=== PATIENT | female | born 1960 | race Hispanic/Latino ===

== ENCOUNTER 2018-11-29 06:12 | Day surgery (SDC) | payer BC ==
[2018-11-27 17:01] LABS: Urine Appearance CLEAR; Urine Bilirubin NEGATIVE (NEG); Urine Blood NEGATIVE (NEG); Urine Color YELLOW; Urine Glucose NEGATIVE (NEG); Urine Protein NEGATIVE (NEG); Urine Specific Gravity 1.025 (1.005-1.030); Urine Urobilinogen 0.2 mg/dL (0.2-1.0)
[2018-11-27 17:07] LABS: Urine Microscopic Reflex NO UMIC
[2018-11-27 17:14] LABS: Absolute Monocytes 0.6 K/uL (0.1-1.3); Absolute Neutrophil 5.6 K/uL (1.8-8.0); Basophils % 0.6 % (0-1.3); Eosinophils % 2.2 % (0-4.4); Hematocrit 42.8 % (36.0-45.0); MPV 7.9 fL (7.6-11.3); Monocytes % 6.1 % (3.3-12.3); RBC Red Blood Cell Count 4.93 M/uL (3.86-4.86)
--- OUTSIDE RECORDS SUMMARY | 2018-11-29 06:16 | XMS REPORT | Clinical Summary ---
:1960 Author Organization [facility] Address [address] [place] [id number] Care Team Providers Name Role Phone Phoenix Lopez Primary Care Provider Allergies Active Allergy Reactions Severity Noted Date Comments Codeine Other (See Comments) High 08/06/2014 Headache Prochlorperazine Other (See Comments) High 08/06/2014 Oxycodone-Acetaminophen Itching, Nausea And High 09/26/2014 headache Vomiting Sulfa (Sulfonamide Antibiotics) Rash High 08/06/2014 Medications Medication Sig Dispensed Refills Start Date End Date Status ibuprofen Take by mouth. 0 Active (ADVIL,MOTRIN) 200 MG tabletIndications: Abnormal liver enzymes naproxen Take 220 mg by 0 Active (ALEVE,ANAPROX,MIDOL) mouth 2 (two) 220 MG times daily with tabletIndications: breakfast and Abnormal liver enzymes dinner. acetaminophen (TYLENOL) Take 650 mg by 0 Active 325 MG mouth every 6 tabletIndications: (six) hours as Abnormal liver enzymes needed for Pain. diphenhydrAMINE Take 25 mg by 0 Active (BENADRYL) 25 mg mouth every night tabletIndications: as needed for Abnormal liver enzymes Sleep. albuterol HFA (VENTOLIN Inhale 1 puff by 0 Active HFA) 90 mcg/actuation mouth via inhaler inhalerIndications: every 6 (six) Abnormal liver enzymes hours as needed for Wheezing. msm-aloe Apply topically. 0 Active evsu--jvc oil GelIndications: Abnormal liver enzymes estradiol (ESTRACE) 1 Take 1 mg by 0 Active MG tabletIndications: mouth daily. Abnormal liver enzymes famotidine (PEPCID) 20 Take 20 mg by 0 Active MG tablet mouth daily as needed for Heartburn. Active Problems Problem Noted Date Abnormal liver enzymes 12/09/2016 Last Assessment & Plan: She has long standing elevated transaminase consistent with hepatocellular injury. The most likely cause is fatty liver. Sarcoidosis is another possibility. Comprehensive tests done in September 2016 was unremarkable for other causes. We recommend liver biopsy for further evaluation. This will be done after she has completed 30-day of heart monitoring. Fatty liver 12/09/2016 Last Assessment & Plan: She has fatty liver noted on ultrasound. Her risk factors include obesity, hyperlipidemia. She has no evidence of cirrhosis on biochemical tests and imaging in 2014. We will repeat ultrasound with elastography today to evaluate liver fibrosis. We recommend liver biopsy to determine whether she has NOVAK and advanced fibrosis. We recommend 5-10% weight loss with low carbohydrate diet and exercise. Sarcoidosis 12/09/2016 Last Assessment & Plan: She was diagnosed with sarcoidosis based on skin biopsy and elevated TAWANDA. She is not a usual ethnicity to have sarcoidosis. Sarcoidosis can involve liver and is a potential cause of abnormal liver enzymes. We will order liver biopsy for further evaluation. Obesity (BMI 30-39.9) 12/09/2016 Last Assessment & Plan: She has obesity and hyperlipidemia that increase risk of fatty liver, cardiovascular disease and malignancy. We recommend weight loss with low carbohydrate diet and exercise. Immunity status testing 12/09/2016 Last Assessment & Plan: All patients with chronic liver disease, regardless of etiology, should be immunized to prevent hepatitis A and hepatitis B if they are not already immune. She did not have immunity to hepatitis B from 09/18/16 tests. We will test for immunity to hepatitis A - vaccine recommendations will follow. Family History Medical History Relation Name Comments Hypertension Sister Sjogren's syndrome Sister Relation Name Status Comments Sister Alive Social History Tobacco Use Types Packs/Day Years Used Date Never Smoker Alcohol Use Drinks/Week oz/Week Comments No Social drinking, states only social drinking prior to that Sex Assigned at Date Recorded Not on file Job Start Date Occupation Industry Not on file Not on file Not on file Travel History Travel Start Travel End No recent travel history available. Last Filed Vital Signs Not on file Plan of Treatment Health Maintenance Due Date Last Done Comments INFLUENZA VACCINE 04/17/2018 Results Not on fileafter 11/28/2017 Insurance Payer Benefit Plan / Group Subscriber ID Type Phone Address [facility] CHOICE xxxxxxxxxxxx HMO/POS [phone] CHOICE EXCHANGE URIAH [phone] Advance Directives For more information, please contact:[address] [phone] Code Status Date Activated Date Inactivated Comments Full Code 01/07/2017 2:06 PM 01/07/2017 9:17 PM This code status was determined by: Patient
--- OUTSIDE RECORDS SUMMARY | 2018-11-29 06:16 | XMS REPORT | Clinical Summary ---
:1960 Author Organization [facility] Address [address] [place] [address] Care Team Providers Name Role Phone Essie Holman MD Primary Care Provider Allergies Active Allergy Reactions Severity Noted Date Comments Codeine High Vomiting & Headaches Vomiting & Headaches Oxycodone-Acetaminophen Itching, Other (See High 09/26/2014 headache Comments) itching Prochlorperazine High loss of vision loss of vision Prochlorperazine Edisylate Other (See 06/24/2011 Comments) Sulfa (Sulfonamide Other (See High 06/24/2011 headaches Antibiotics) Comments) Medications Medication Sig Dispensed Refills Start Date End Date Status cholecalciferol, vitamin Take by mouth 0 Active D3, (VITAMIN D3 ORAL) daily. omega-3s/dha/epa/fish Take by mouth 3 0 Active oil (OMEGA 3 ORAL) (three) times a day. acetaminophen (TYLENOL) Take 325 mg by 0 Active 325 MG tablet mouth every 6 (six) hours as needed for fever. Active Problems Problem Noted Date Varicose veins of lower extremity 01/25/2018 Postmenopausal status 01/25/2018 Dizziness 01/25/2018 Overview: Previous was seen by ENT for dizziness, had hearing test and balance test done. Last Assessment & Plan: Per ENT. Notes reviewed. Sarcoidosis 12/09/2016 Overview: She was diagnosed with sarcoidosis based on skin biopsy and elevated TAWANDA. Has been having some periarthritis in the ankles and feet and just takes advil/ tylenol and she states it works ok. Does have cough and SOB and was ruled out by a previous pulm for MINOO> Last Assessment & Plan: Place referral for Pulmonary & Rheumatology Obesity (BMI 30-39.9) 12/09/2016 Overview: Last Assessment & Plan: She has obesity and hyperlipidemia that increase risk of fatty liver, cardiovascular disease and malignancy. We recommend weight loss with low carbohydrate diet and exercise. Fatty liver 12/09/2016 Overview: She has fatty liver noted on ultrasound. Her risk factors include obesity, hyperlipidemia. Liver biopsy done showed NOVAK. Last Assessment & Plan: We recommend 5-10% weight loss with low carbohydrate diet and exercise and recheck LFTS. Immunity status testing 12/09/2016 Overview: Last Assessment & Plan: All patients with chronic liver disease, regardless of etiology, should be immunized to prevent hepatitis A and hepatitis B if they are not already immune. She did not have immunity to hepatitis B from 09/18/16 tests. We will test for immunity to hepatitis A - vaccine recommendations will follow. Vitamin D deficiency 04/08/2015 Mixed hyperlipidemia 04/08/2015 Overview: Not on meds; trying to control with diet; BMI 31 Last Assessment & Plan: Recheck Lipids during physical. Lipid abnormalities are newly identified. Nutritional counseling was provided. Lipids will be reassessed in 6 months. Encounters Date Type Specialty Care Team Description 01/25/2018 Lab Lab Essie Holman Fatty liver MD Aubrey 01/25/2018 Office Visit Internal Medicine Essie Holman Sarcoidosis ( Primary Dx); MD Aubrey Chronic cough; Fatty liver; Mixed hyperlipidemia; Dizziness after 11/28/2017 Family History Medical History Relation Name Comments Cancer Brother Brother prostate Cataracts Mother Hypertension Sister Relation Name Status Comments Brother Brother Father Mother Alive Sister Alive Social History Tobacco Use Types Packs/Day Years Used Date Never Smoker Smokeless Tobacco: Never Used Tobacco Cessation: Counseling Given: No Alcohol Use Drinks/Week oz/Week Comments No Sex Assigned at Date Recorded Not on file Job Start Date Occupation Industry Not on file Not on file Not on file Travel History Travel Start Travel End No recent travel history available. Last Filed Vital Signs Vital Sign Reading Time Taken Blood Pressure 114/73 01/25/2018 9:16 AM CDT Pulse 64 01/25/2018 9:16 AM CDT Temperature 36.6 C (97.9 F) 01/25/2018 9:16 AM CDT Respiratory Rate 16 01/25/2018 9:16 AM CDT Oxygen Saturation 96% 01/25/2018 9:16 AM CDT Inhaled Oxygen Concentration - - Weight 78.5 kg (173 lb) 01/25/2018 9:16 AM CDT Height 157.5 cm (5' 2") 01/25/2018 9:16 AM CDT Body Mass Index 31.64 01/25/2018 9:16 AM CDT Plan of Treatment Health Maintenance Due Date Last Done Comments CERVICAL CANCER SCREENING 09/17/1983 BREAST CANCER SCREENING 2012 COLON CANCER SCREENING 2012 SHINGLES VACCINES (#1) 2012 INFLUENZA VACCINE 02/15/2019 Procedures Procedure Name Priority Date/Time Associated Comments Diagnosis CBC WITH PLATELET AND Routine 01/25/2018 10:16 Fatty liver Results for this DIFFERENTIAL AM CDT procedure are in the results section. COMPREHENSIVE Routine 01/25/2018 10:16 Fatty liver Results for this METABOLIC PANEL AM CDT procedure are in the results section. after 11/28/2017 Results CBC with platelet and differential (01/25/2018 10:16 AM CDT) WBC 7.7 3.4 - 10.8 x10E3/uL [facility] RBC 4.51 3.77 - 5.28 x10E6/uL [facility] HGB 13.3 11.1 - 15.9 g/dL [facility] HCT 40.1 34.0 - 46.6 % [facility] MCV 89 79 - 97 fL [facility] MCH 29.5 26.6 - 33.0 pg [facility] MCHC 33.2 31.5 - 35.7 g/dL [facility] RDW 13.3 12.3 - 15.4 % [facility] Platelet count 280 150 - 379 x10E3/uL [facility] Neutrophils 50 Not Estab. % [facility] Lymphocytes 40 Not Estab. % [facility] Monocytes 7 Not Estab. % [facility] Eosinophils 3 Not Estab. % [facility] Basophils 0 Not Estab. % [facility] Neutrophils, absolute 3.9 1.4 - 7.0 x10E3/uL [facility] Lymphocytes, absolute 3.1 0.7 - 3.1 x10E3/uL [facility] Monocytes, absolute 0.5 0.1 - 0.9 x10E3/uL [facility] Eosinophils, absolute 0.2 0.0 - 0.4 x10E3/uL [facility] Basophils, absolute 0.0 0.0 - 0.2 x10E3/uL [facility] Immature granulocytes 0 Not Estab. % [facility] Immature grans (abs) 0.0 0.0 - 0.1 x10E3/uL [facility] Specimen Blood Narrative Performed At Performed at: [id number] Continuous Churn Buttermaker: Edward Cummins MD, Phone:[phone] Performing Organization Address [facility] [place] Phone Number [facility] Comprehensive metabolic panel (01/25/2018 10:16 AM CDT) Glucose 91 65 - 99 mg/dL [facility] BUN, whole blood 11 6 - 24 mg/dL [facility] Creatinine 0.78 0.57 - 1.00 mg/dL [facility] EGFR Non-Afr. Palauan 86 >59 mL/min/1.73 [facility] EGFR 99 >59 mL/min/1.73 [facility] BUN/creatinine ratio 14 9 - 23 [facility] Sodium 141 134 - 144 mmol/L [facility] Potassium 5.0 3.5 - 5.2 mmol/L [facility] Chloride 105 96 - 106 mmol/L [facility] CO2 23 20 - 29 mmol/L [facility] Calcium 9.8 8.7 - 10.2 mg/dL [facility] Protein 6.9 6.0 - 8.5 g/dL [facility] Albumin, S 4.4 3.5 - 5.5 g/dL [facility] Globulin, total 2.5 1.5 - 4.5 g/dL [facility] Albumin/globulin ratio 1.8 1.2 - 2.2 [facility] Total bilirubin 0.6 0.0 - 1.2 mg/dL [facility] Alkaline phosphatase 113 39 - 117 IU/L [facility] AST 58 (H) 0 - 40 IU/L [facility] ALT 63 (H) 0 - 32 IU/L [facility] Specimen Blood Narrative Performed At [facility] [id number] Continuous Churn Buttermaker: Edward Cummins MD, Phone:[phone] Performing Organization Address [facility] Phone Number [facility] after 11/28/2017 Insurance Payer Benefit Plan / Group Subscriber ID Type Phone Address BCBS BCBS CHOICE PPO/FEDERAL EMPL PPO xxxxxxxxxxxx PPO Advance Directives Patient has advance care planning documents on file. For more information, please contact:[place] [address]
--- OUTSIDE RECORDS SUMMARY | 2018-11-29 06:17 | XMS REPORT ---
:1960 Author Organization [facility] Address [address] [place] [address] [address] [place] [address] Care Team Providers Name Role Phone HILL PEACE Unavailable Unavailable RAPHAEL HANLEY Unavailable Unavailable Problems This patient has no known problems. Allergies, Adverse Reactions, Alerts This patient has no known allergies or adverse reactions. Medications This patient has no known medications. Encounters Start End Encounter Admission Attending Care Care Encounter Date/Time Date/Time Type Type Clinicians Facility Department ID 2018-10-04 Inpatient C [facility] PT [id number] 12:46:00 HILL Results Test Description Test Time Test Comments Text Results Atomic Results Result Comments TISSUE EXAM 2017-01-10 15:34:00 Surgical Pathology Report Case: [id number] Authorizing Provider: Raphael Hanley MD Collected: 01/07/2017 1548 Ordering Location: [facility] Patient Lab Received: 01/07/2017 1548 Pathologist: Ly Tamez MD Specimen: Biopsy, Liver, ELEVATED LIVER ENZYMES LIVER, RIGHT LOBE, ULTRASOUND-GUIDED NEEDLE BIOPSIES- STEATOHEPATITIS- FIBROSIS STAGE 3 OF 4- CHRONIC PORTAL LYMPHOPLASMACYTIC INFLAMMATION WITH MILD INTERFACE HEPATITIS- MODERATE TO SEVERE LOBULAR INFLAMMATION WITH SCATTERED ACIDOPHILIC BODIES- SEE COMMENT The liver biopsy shows steatohepatitis. In addition, there is portal lymphoplasmacytic inflammation with mild interface hepatitis, and moderate to marked lobular inflammation. The portal and lobular inflammation can be present in steatohepatitis that progress to advanced fibrosis. However, this may also represent an added component of chronic hepatitis secondary to viral hepatitis or drug induced liver injury. Clinical correlation is suggested.The non-alcoholic steatohepatitis (CHRISS) activity scoring is performed according to guidelines from non-alcoholic steatohepatitis, clinical research network (Dayna, et al. Hepatology 2005. 41:1313-21), at the request of the clinicianThe CHRISS score is: Steatosis: Grade 2 + lobular inflammation, grade 3 + hepatocyte ballooning score 1=6/8. The fibrosis score is 3 of 4 (bridging fibrosis)[id number] X 4Elevated liver enzymes Right lobe liver biopsy Received in formalin labeled "liver biopsy", are two light hollis cores of soft tissue each measuring 1.5 cm in length. The specimen is entirely submitted in cassette A1. DB/ewSection shows two cores of liver parenchyma with greater than 10 portal tracts and is adequate for evaluation. There is moderate steatosis, predominantly macrovesicular type, azonal in distribution, and involving about 40 % of liver parenchyma. Focal ballooning degeneration is noted. There is moderate to severe lobular inflammation with few scattered acidophilic bodies. Rare focus of lobular neutrophils is noted. The portal tracts show preserved and unremarkable bile ducts. Mild cholangiolar proliferation is noted. There is chronic nonspecific portal inflammation with mild interface hepatitis. Iron stain shows 1+ staining of the hepatocytes. No hyaline globules are seen on PAS with diastase stain. The trichrome stain perisinusoidal fibrosis, as well as portal/periportal and focal bridging fibrosis with incomplete nodule formation. No significant portal fibrosis is noted. Special stains: trichrome, reticulin, iron and PAS [facility], [facility] of [facility], [address] [place] [address], [place] [address], CBC W/PLT COUNT & AUTO DIFFERENTIAL 2017-01-07 11:41:00 Test Item Value Reference Range Comments WHITE BLOOD CELL COUNT (BEAKER) (test kxrh=014) 6.3 K/ L 4.0-10.0 RED BLOOD CELL COUNT (BEAKER) (test qdtk=331) 4.62 M/ L 4.00-5.00 HEMOGLOBIN (BEAKER) (test geta=605) 14.4 GM/DL 12.0-15.0 HEMATOCRIT (BEAKER) (test srek=092) 40.8 % 36.0-45.0 MEAN CORPUSCULAR VOLUME (BEAKER) (test elfd=905) 88.2 fL 82.0-99.0 MEAN CORPUSCULAR HEMOGLOBIN (BEAKER) (test ztvr=753) 31.1 pg 27.0-33.0 MEAN CORPUSCULAR HEMOGLOBIN CONC (BEAKER) (test zkyh=290) 35.2 GM/DL 32.0- 36.0 RED CELL DISTRIBUTION WIDTH (BEAKER) (test jxpb=886) 12.5 % 10.3-14.2 PLATELET COUNT (BEAKER) (test cxvt=804) 239 K/CU MM 150-430 MEAN PLATELET VOLUME (BEAKER) (test wulm=389) 6.6 fL 6.5-10.5 NUCLEATED RED BLOOD CELLS (BEAKER) (test qnfq=501) 0 /100 WBC 0-0 NEUTROPHILS RELATIVE PERCENT (BEAKER) (test rxmp=565) 47 % LYMPHOCYTES RELATIVE PERCENT (BEAKER) (test cdxo=069) 44 % MONOCYTES RELATIVE PERCENT (BEAKER) (test jhry=331) 6 % EOSINOPHILS RELATIVE PERCENT (BEAKER) (test pimf=990) 3 % BASOPHILS RELATIVE PERCENT (BEAKER) (test ogyh=070) 0 % NEUTROPHILS ABSOLUTE COUNT (BEAKER) (test pwdk=159) 2.93 K/ L 1.80-8.00 LYMPHOCYTES ABSOLUTE COUNT (BEAKER) (test cweg=678) 2.73 K/ L 1.48-4.50 MONOCYTES ABSOLUTE COUNT (BEAKER) (test meyy=639) 0.37 K/ L 0.00-1.30 EOSINOPHILS ABSOLUTE COUNT (BEAKER) (test xnbm=449) 0.21 K/ L 0.00-0.50 BASOPHILS ABSOLUTE COUNT (BEAKER) (test vqpg=251) 0.02 K/ L 0.00-0.20 0.00(MANUAL DIFFERENTIAL)2017-01-07 11:41:00 Test Item Value Reference Range Comments TOTAL COUNTED (BEAKER) (test icsw=8214) WBC MORPHOLOGY (BEAKER) (test mdss=901) Normal PLT MORPHOLOGY (BEAKER) (test rwbx=412) Normal RBC MORPHOLOGY (BEAKER) (test fbsn=501) Normal COMPREHENSIVE METABOLIC [id number] 09:12:00 Test Item Value Reference Range Comments TOTAL PROTEIN (BEAKER) 7.1 gm/dL 6.0-8.3 (test yjut=362) ALBUMIN (BEAKER) (test 3.8 g/dL 3.5-5.0 klqr=6830) ALKALINE PHOSPHATASE 115 U/L 40-150 (BEAKER) (test cfya=860) BILIRUBIN TOTAL (BEAKER) 1.0 mg/dL 0.2-1.2 (test xgwy=214) SODIUM (BEAKER) (test 138 meq/L 136-145 lxdu=205) POTASSIUM (BEAKER) (test 4.1 meq/L 3.5-5.1 yzke=747) CHLORIDE (BEAKER) (test 107 meq/L 98-107 vfyr=745) CO2 (BEAKER) (test 25 meq/L 22-29 kexb=928) BLOOD UREA NITROGEN 9 mg/dL 7-21 (BEAKER) (test gqyi=476) CREATININE (BEAKER) (test 0.80 mg/dL 0.57-1.25 mrnq=596) GLUCOSE RANDOM (BEAKER) 99 mg/dL 70-105 (test jeuz=551) CALCIUM (BEAKER) (test 9.0 mg/dL 8.4-10.2 ejgp=107) AST (SGOT) (BEAKER) (test 104 U/L 5-34 omtw=174) ALT (SGPT) (BEAKER) (test 103 U/L 6-55 orqq=231) EGFR (BEAKER) (test 75 mL/min/1.73 sq m ESTIMATED GFR IS NOT gdfs=2467) ACCURATE CREATININE CLEARANCE IN PREDICTING GLOMERULAR FILTRATION RATE. ESTIMATED GFR IS NOT APPLICABLE FOR DIALYSIS PATIENTS. [id number] 08:59:00 Test Item Value Reference Range Comments PROTIME (BEAKER) (test gblp=819) 13.7 seconds 11.7-14.7 INR (BEAKER) (test hfnk=239) 1.1 <=5.9 PARTIAL THROMBOPLASTIN TIME (BEAKER) (test 26.7 seconds 22.5-36.0 drmc=042) RECOMMENDED COUMADIN/WARFARIN INR THERAPY RANGESSTANDARD DOSE: 2.0 - 3.0 Includes: PROPHYLAXIS forvenous thrombosis, systemic embolization; TREATMENT for venous thrombosis and/or pulmonary embolus.HIGH RISK: Target INR is 2.5-3.5 for patients with mechanical heart valves.HEPATITIS B CORE ANTIBODY, [id number] 15:09:00 Test Item Value Reference Range Comments HEPATITIS B CORE TOTAL ANTIBODY (BEAKER) (test Nonreactive Nonreactive jlan=796) HEPATITIS A ANTIBODY, [id number] 15:09:00 Test Item Value Reference Range Comments HEPATITIS A IGG ANTIBODY (BEAKER) (test Nonreactive Nonreactive dhie=1549) HEPATIC FUNCTION [id number] 14:29:00 Test Item Value Reference Range Comments TOTAL PROTEIN (BEAKER) (test qovr=718) 8.0 gm/dL 6.0-8.3 ALBUMIN (BEAKER) (test tkdd=5862) 4.2 g/dL 3.5-5.0 BILIRUBIN TOTAL (BEAKER) (test hzfy=895) 1.1 mg/dL 0.2-1.2 BILIRUBIN DIRECT (BEAKER) (test mbdc=508) 0.3 mg/dL 0.1-0.5 ALKALINE PHOSPHATASE (BEAKER) (test cuee=600) 128 U/L 40-150 AST (SGOT) (BEAKER) (test vvew=513) 89 U/L 5-34 ALT (SGPT) (BEAKER) (test clms=629) 96 U/L 6-55 BASIC METABOLIC [id number] 14:29:00 Test Item Value Reference Range Comments SODIUM (BEAKER) (test 138 meq/L 136-145 owwa=949) POTASSIUM (BEAKER) (test 4.0 meq/L 3.5-5.1 jhtw=711) CHLORIDE (BEAKER) (test 105 meq/L 98-107 htpe=836) CO2 (BEAKER) (test 24 meq/L 22-29 onog=585) BLOOD UREA NITROGEN 10 mg/dL 7-21 (BEAKER) (test imne=476) CREATININE (BEAKER) (test 0.80 mg/dL 0.57-1.25 xcvi=049) GLUCOSE RANDOM (BEAKER) 89 mg/dL 70-105 (test nbqp=170) CALCIUM (BEAKER) (test 9.4 mg/dL 8.4-10.2 dvsm=259) EGFR (BEAKER) (test 75 mL/min/1.73 sq m ESTIMATED GFR IS NOT bdyj=9688) ACCURATE CREATININE CLEARANCE IN PREDICTING GLOMERULAR FILTRATION RATE. ESTIMATED GFR IS NOT APPLICABLE FOR DIALYSIS PATIENTS. CBC W/PLT COUNT & AUTO [id number] 14:08:00 Test Item Value Reference Range Comments WHITE BLOOD CELL COUNT (BEAKER) (test rizi=721) 8.7 K/ L 4.0-10.0 RED BLOOD CELL COUNT (BEAKER) (test uuis=190) 4.94 M/ L 4.00-5.00 HEMOGLOBIN (BEAKER) (test wkov=264) 15.5 GM/DL 12.0-15.0 HEMATOCRIT (BEAKER) (test bbxm=493) 44.4 % 36.0-45.0 MEAN CORPUSCULAR VOLUME (BEAKER) (test trim=500) 89.9 fL 82.0-99.0 MEAN CORPUSCULAR HEMOGLOBIN (BEAKER) (test 31.3 pg 27.0-33.0 dsib=070) MEAN CORPUSCULAR HEMOGLOBIN CONC (BEAKER) (test 34.8 GM/DL 32.0-36.0 kube=119) RED CELL DISTRIBUTION WIDTH (BEAKER) (test 11.2 % 10.3-14.2 mqeu=701) PLATELET COUNT (BEAKER) (test nyua=498) 282 K/CU MM 150-430 MEAN PLATELET VOLUME (BEAKER) (test ifgc=479) 6.9 fL 6.5-10.5 NUCLEATED RED BLOOD CELLS (BEAKER) (test 0 /100 WBC 0-0 wgzc=459) NEUTROPHILS RELATIVE PERCENT (BEAKER) (test 53 % qfvx=934) LYMPHOCYTES RELATIVE PERCENT (BEAKER) (test 40 % xpzt=578) MONOCYTES RELATIVE PERCENT (BEAKER) (test 5 % kiix=569) EOSINOPHILS RELATIVE PERCENT (BEAKER) (test 2 % jojs=561) BASOPHILS RELATIVE PERCENT (BEAKER) (test 1 % vftf=826) NEUTROPHILS ABSOLUTE COUNT (BEAKER) (test 4.55 K/ L 1.80-8.00 irsr=433) LYMPHOCYTES ABSOLUTE COUNT (BEAKER) (test 3.43 K/ L 1.48-4.50 utnq=973) MONOCYTES ABSOLUTE COUNT (BEAKER) (test 0.45 K/ L 0.00-1.30 ofms=857) EOSINOPHILS ABSOLUTE COUNT (BEAKER) (test 0.19 K/ L 0.00-0.50 lxvx=412) BASOPHILS ABSOLUTE COUNT (BEAKER) (test 0.05 K/ L 0.00-0.20 igja=437) 0.00
--- OUTSIDE RECORDS SUMMARY | 2018-11-29 06:17 | XMS REPORT | Continuity of Care Document ---
:1960 Author Organization Interface Problems Problem Status Onset Classification Date Comments Source Date Reported H57.12 - "OCULAR Active 02/18/20 [facility] PAIN, LEFT EYE" 17 [facility] D86.9 - Z12.39 - Active 02/18/20 [facility] ENCOUNTER FOR OTH 17 [place] SCREENING FO Sarcoidosis Resolved Problem 06/18/2017 Medical Group, [facility] Screening for Active Problem 06/18/2017 Medical breast cancer Group, [facility] [place] High cholesterol Resolved Problem 06/18/2017 Medical Group, [facility] [place] Asthma Resolved Problem 06/18/2017 Medical Group, [facility] [place] Migraines Resolved Problem 06/18/2017 Medical Group, [facility] Left eye pain Active Problem 06/18/2017 Medical Group, [facility] [place] Postmenopausal Active Problem 06/18/2017 Medical status Group Simple obesity Active Problem 06/18/2017 Medical Group, [facility] [place] Medications Medication Details Route Status Patient Ordering Order Source Instructions Provider Date Esomeprazole 40 40 mg=1 Active MH MG Enteric cap, PO, 017 Medical Coated Capsule Daily, # 30 Group cap, 0 Refill(s), Pharmacy: [facility] 527 albuterol 90 2 puff, Active MH mcg/inh INHALATION, 017 Medical inhalation QID, # 17 Group aerosol gm, 1 Refill(s), Pharmacy: [facility] 527 predniSONE 10 See Special Active MH mg oral tablet Instruction 017 Medical s, PO, Group Daily, 10 day regimen: Days 1-3 - 30 mg (3 tabs) daily Days 4-6 - 20 mg (2 tabs) daily Days 7-10 - 10 mg (1 tab) daily with food, X 10 day, # 19 tab, 0 Refill(s) Allergies, Adverse Reactions, Alerts Substance Category Reaction Severity Reaction Status Date Comments Source type Reported sulfa Assertion Severe Drug Active headaches drugs<sup>1 allergy Medical </sup> Group Compazine<s Assertion Severe Drug Active loss of MH up>2</sup> allergy vision Medical Group Percocet Assertion Moderate Drug Active itching MH 7.5/325<sup allergy Medical >3</sup> Group Codeine Assertion Severe Drug Active Vomiting & MH Sulfate<sup allergy Headaches Medical >4</sup> Group Codeine Assertion Severe Drug Active Vomiting & MH [facility] Sulfate<sup allergy Headaches [place] >1</sup> sulfa Assertion Severe Drug Active headaches MH [facility] drugs<sup>4 allergy [place] </sup> Immunizations Immunization Date Given Site Status Last Comments Source Updated diphtheria/pertus 02/16/2017 Left completed Denise Result MH Medical sis, acel/tetanus Deltoid Comment: No Group,MH adult<sup>1</sup> reaction to [facility] vaccine. [place] Results Order Results Value Reference Date Interpretation Comments Source Name Range Orbit Orbit EXAM: Orbit w/wo contrast MRI 03/01 - [facility] w/wo w/wo /2016 - [facility] contrast contrast MRI MRI DATE: 03/01/2017 12:36 PM CDT Read by: Emily Carmona MD Dictated Date/time: 03/01/17 15:02 Electronically Signed by: Emily Carmona MD 03/01/17 15:07 FINAL REPORT INDICATION: H57.12 Ocular pain, left eye - COMPARISON: None TECHNIQUE: Multiplanar multisequence images of the brain and orbits were obtained before and after the intravenous administration of 15 mL Dotarem. DISCUSSION: Signal intensity on exam from the brain parenchyma is unremarkable. No acute hemorrhage, hydrocephalus or midline shift. No restricted diffusion. No mass or abnormal enhancement. Pineal region, pituitary gland, cranial cervical junction, and internal auditory canals are unremarkable. Both ocular globes are symmetric with no mass or abnormal enhancement. The extraocular muscles are symmetric and unremarkable. Lacrimal glands and orbital fat are unremarkable. No mass effect upon the o ptic apparatus. No mass or abnormal enhancement of the optic nerves. Paranasal sinuses are clear. IMPRESSION: Unremarkable magnetic resonance imaging of the brain and orbits. Breast Breast - BREAST MAMMO SCRN DRAGAN INCL CAD MA 03/01 - MH [facility] Mammo Mammo /2017 - [facility] Scrn DRAGAN Scrn DRAGAN BILATERAL DIGITAL SCREENING MAMMOGRAM WITH CAD: 03/01/2017 incl CAD incl CAD MAXX LILLY CLINICAL: Screening/Screening. Read by: Jennifer Connelly MD PHD Dictated Date/time: 03/01/17 17:06 Electronically Signed by: Jennifer Connelly MD PHD 03/01/17 17:06 FINAL REPORT Current study was evaluated with a Computer Aided Detection (CAD) system. No prior exams were available for comparison. There are scattered fibroglandular densities in both breasts. There are benign calcifications in the right breast. No significant masses, calcifications, or other findings are seen in either breast. IMPRESSION: BENIGN Prior studies would be helpful for comparison. If these become available, an addendum may be generated. There is no mammographic evidence of malignancy. A 1 year screening mammogram is recommended. Jennifer Connelly M.D. hh/penrad:03/01/2017 17:06:52 [facility] Architect: Matilda Pressley RT(R)(M), [facility] Outpatient Imaging Department This exam was dictated and interpreted by [id number] for [facility]. letter sent: Normal [place] Mammogram BI-RADS: 2 Benign Vital Signs Vital Sign Value Date Comments Source Weight 78.636 06/08/2017 Medical Group BMI Calculated 32.76 06/08/2017 Medical [facility] Temperature Oral (F) 93.0 F 06/08/2017 Medical [facility] Heart Rate 63 06/08/2017 Medical Group Systolic (mm Hg) 124 06/08/2017 Medical Group Diastolic (mm Hg) 71 06/08/2017 Medical Group Respitory Rate 16 06/08/2017 Medical Group Height 154.94 cm 06/08/2017 Medical Group Encounters Location Location Encounter Encounter Reason Attending ADM AL Status Source Details Type Number For Provider Date Date Visit Outpatient [id number] JAKE 02/16 [facility] Outpt Diag [id number] Jake 03/01 03/02 [facility] Outpatient Services [facility] Outpatient [id number] Jake 03/01 03/02 [facility] Outpatient [place] [facility] [place] [facility] [id number] JAKE 05/11 [facility] [place] Outpatient [id number] JAKE 06/08 [facility] Outpatient [id number] Jake 06/08 06/09 Internal [place] /2016 Medical Medicine Group [facility] Phone [id number] 06/14 06/16 Internal Message /2016 Medical Medicine Group [facility] Phone [id number] 06/14 06/16 Internal Message /2016 Medical Medicine Group [facility] Procedures Procedure Code Date Perfomer Comments Source Bile duct operation [id number] Medical Group Gallbladder [id number] Medical operation Group Ganglionectomy of [id number] Medical tendon sheath of Group wrist Hysterectomy [id number] Medical Group Oophorectomy [id number] Medical Group Reconstruction<sup>1 [id number] ACL Medical </sup> Group Sinusotomy [id number] Medical Group Tonsillectomy [id number] Medical Group Bile duct operation [id number] [facility] [place] Gallbladder [id number] [facility] operation [place] Ganglionectomy of [id number] [facility] tendon sheath of [place] wrist Hysterectomy [id number] [facility] [place] Oophorectomy [id number] [facility] [place] Reconstruction<sup>1 [id number] ACL [facility] </sup> [place] Sinusotomy [id number] [facility] [place] Tonsillectomy [id number] [facility] [place]
[2018-11-29] MEDS ORDERED: PROPOFOL 200 MG/20 ML VIAL IV ONE (07:10)
[2018-11-29] MEDS ORDERED: ROCURONIUM 50 MG/5 ML VIAL IV ONE (07:11)
[2018-11-29] MEDS ORDERED: GLYCOPYRROLATE 0.2 MG/ML SYR ONE (07:12)
[2018-11-29] MEDS ORDERED: DEXAMETHASONE 10 MG/ML VIAL ONE (07:13)
[2018-11-29] MEDS ORDERED: LIDOCAINE 2% MPF 5 ML VIAL ONE (07:13)
[2018-11-29] MEDS ORDERED: MIDAZOLAM HCL 2 MG/2 ML INJ ONE (07:14)
[2018-11-29] MEDS ORDERED: FENTANYL CITR 250 MCG/5 ML ONE (07:14)
[2018-11-29] MEDS ORDERED: ONDANSETRON 4 MG/2 ML VIAL ONE ×2 (07:15→09:07)
[2018-11-29] MEDS ORDERED: Ringers Lactate 1,000 ML IV ONE ×2 (07:32→09:35)
[2018-11-29] MEDS ORDERED: SCOPOLAMINE HYDROBROMIDE PATCH TD ONE (07:34)
[2018-11-29] MEDS ORDERED: CEFAZOLIN/SWI 1gm 2 GM/20 ML SYR ONE (07:34)
[2018-11-29] MEDS ORDERED: NEOSTIGMINE 1 MG/ML -10 ML VIAL ONE (09:07)
[2018-11-29] MEDS ORDERED: KETOROLAC 30 MG/ML INJ ONE (09:07)
[2018-11-29] MEDS: HYDROMORPHONE HCL 1 MG/ML INJ ONE ×2 (09:42→09:53)
[2018-11-29] MEDS ORDERED: ONDANSETRON HCL 40 MG/20 ML VIAL ONE (09:50)
[2018-11-29 10:07] VITALS: O2SAT 98
[2018-11-29 10:36] VITALS: TEMP 97.8
[2018-11-29] MEDS ORDERED: IBUPROFEN 400 MG TAB ONE (10:51)
[2018-11-29] MEDS ORDERED: IBUPROFEN 200 MG TAB PO ONE (10:51)
[2018-11-29] MEDS ORDERED: PROMETHAZINE 25 MG/ML VIAL ONE (11:00)
[2018-11-29 14:13] VITALS: BP 122/62
--- NOTE | 2018-11-29 19:08 | OP ---
Date of Procedure: 11/29/2018 Surgeon: Sigrid Rogers MD Preoperative Diagnoses: Pelvic pain, history of endometriosis, status post hysterectomy, bilateral s alpingo-oophorectomy. Postoperative Diagnoses: Pelvic pain, history of endometriosis, status post hysterectomy, bilateral salpingo-oophorectomy and a dilated appendix and a small whitish spot on the small bowel. Potential liver cirrhosis. Procedures Performed: Diagnostic laparoscopy, lysis of periappendiceal adhesions, and appendectomy. Anesthesia: General endotracheal. Specimens: Appendix. Complications: None. Drains: None. Estimated Blood Loss: Minimal. Condition: Stable. Findings: Liver appeared to be slightly cirrhotic. Appendix, midpart of it slightly dilated. Dista l small bowel or ileum with a patch of whitish plaque on the small bowel wall, serosa, and appeared t o be getting into the muscularis as well on inspection. No evidence of any endometriosis. Tubes, ov luis completely absent. Some adhesions of the sigmoid colon to the left lateral wall. Vaginal cuff and cul-de-sac completely clear of any endometriotic implants. Upper abdominal cavity unremarkable as well. The patient is a 58-year-old presenting with pelvic pain, history of endometriosis. She had no other etiology that was found for her pain. Imaging did not show any pelvic masses, lack of any GI etiolo gy despite workup, so plan was to perform a diagnostic laparoscopy to look to see if there was any en dometriosis postmenopausal as the reason for her pain. She also was counseled that if there was no o ther etiology found or anything abnormal found with the appendix, then appendix would be removed and patient preferred to get this done despite the appendix looking normal, so after consenting her, 2 g of Ancef were given in preparation for potential appendectomy. After informed consent was verified, she was taken back to OR, placed in supine fashion on the operat ing table. After general anesthesia was given, she was placed in dorsal lithotomy position. Pelvic exam performed. Cuff unremarkable. No pelvic masses palpable. Abdomen, vulva, vagina, and perineum were prepped and draped in a sterile fashion. Rivera was placed to drain the bladder and attached to a drainage bag. A sponge on a stick was placed in the vagina fo r retraction. A 1 cm infraumbilical incision was made with a scalpel using the open laparoscopy technique. Fascia was incised and cut. The peritoneum was entered bluntly. Fascia was tagged with 2-0 Vicryl sutures on each side and Santo introduced. Site of entry was checked and was unremarkable. The upper abdom inal surfaces were well examined and the liver appeared to be slightly cirrhotic on its surface with a small darkish spot in the left lobe of the liver at the dome. After the patient was placed in [place] position, 5 mm left lower quadrant 5 mm suprapubic ports were placed under direct vision, a nd the small bowel was retracted into the abdominal cavity. Visualization of the pelvic cavity was d one and no evidence of any right tube or ovary remnant. No evidence of endometriosis on close examin ation of the entire pelvic peritoneum including the cul-de-sac, lateral salazar, periureteric areas, pa rarectal gutters. On the left side, there were adhesions of the epiploica of the sigmoid colon to th e peritoneum inferior to the ureter. No evidence of any endometriosis here. The ureter completely f ree as well. Left lateral wall unremarkable. Anterior abdominal wall in the pelvic area, peritoneum completely unremarkable as well. Then, attention was directed to the appendix. The small bowel was retracted superiorly and onto the left. There were adhesions around the appendix that had to be tangela en down with the help of sharp scissors. Once the fat that was scarred to the lateral wall as well a s to the ileum medial and posteriorly, the appendix was identified. The midpart of the appendix appe ared to be slightly dilated. No evidence of acute inflammation, however, given the periappendiceal s car tissue as well as slight dilatation of the appendix and in the absence of other pathology as disc ussed with the patient, we went ahead and decided to perform an appendectomy. A window was made between the cecum and the appendix in the mesoappendix with the help of [place] gr aspers. Once the window was made, a MARIBEL laparoscopic stapler was used with the blue load to go into this and ensure that the base of the appendix was properly included and the entire wall was included and the stapler was fired in the usual fashion detaching the appendix from the cecum. Then the mesoa ppendix was well visualized after it was released from all the underlying ileum in the lateral wall. Then, the EnSeal device was opened and it was used to take the appendiceal artery and the mesoappend ix. Once this was done, there was excellent hemostasis. We waited for about 5 minutes, thoroughly i rrigated and suctioned the peritoneal cavity. There was no evidence of any bleeding from the staple line or the mesoappendix. Then the specimen was placed in the bag. A 5 mm scope was used to perform the appendectomy as well as placement of the specimen in the bag. The specimen was retrieved throug h the umbilical trocar. Thorough irrigation and suction were performed and then the trocars were rem samantha under direct vision. Gas was desufflated. After the Santo was removed, the fascia at the umbi licus was closed with the help of 0 Vicryl in ekeppn-al-bgeje fashion. Another mibfla-wc-tspml had t o be placed inferiorly in order to close the incision properly. All skin incisions closed with the h elp of 4-0 interrupted Vicryl. The Rivera and the sponge on the stick were removed. The patient was recovered from anesthesia and taken to PACU in stable condition. On the ileum, there were findings a s dictated in the findings above. No need was seen for taking a biopsy of this. Instrument, needle, and sponge counts were done and were correct at the end of the case. The patient tolerated the procedure well. She was extubated in the OR and taken to PACU in stable condition. S he will follow up with me in 1 week. JOSEE Voice ID: [id number] Report ID: [id number]
== END 2018-11-29 12:41 | disposition home or self-care (01) ==
LOC: OR 06:12
PROVIDERS: ATTEND Obstetrics & Gynecology
PROC: 0DTJ4ZZ Resection of Appendix, Percutaneous Endoscopic Approach (ICD-10-PCS; principal; 2018-11-29 07:30)
DX: K35.80 Unspecified acute appendicitis (principal); K63.89 Other specified diseases of intestine; Z90.710 Acquired absence of both cervix and uterus; Z90.722 Acquired absence of ovaries, bilateral; Z90.79 Acquired absence of other genital organ(s)
CPT/HCPCS: 36415; 81003; 85025; 86850; 86900; 86901; 88304; J0690; J1100; J1170; J2250; J2405; J2550; J2704; J2710; J3010

== ENCOUNTER 2024-07-08 16:41 | Emergency (ER) | payer BC, OTHER ==
[2024-07-08 17:31] LABS: Absolute Basophils 0.1 K/uL (0-0.5); Absolute Eosinophils 0.2 K/uL (0-0.5); Absolute Lymphocytes (CBC) 2.8 K/uL (0.7-4.9); Absolute Monocytes 0.6 K/uL (0.1-1.3); Absolute Neutrophil 6.4 K/uL (1.8-8.0); Basophils % 0.7 % (0-1.3); Eosinophils % 1.9 % (0-4.4); Hematocrit 40.2 % (36.0-45.0); Hemoglobin 13.9 g/dL (12.0-15.0); Lymphocytes % 27.7 % (15.3-44.8); MCH 30.4 pg (27.0-35.0); MCHC 34.7 g/dL (32.0-36.0); MCV 87.6 fL (80-100); MPV 7.8 fL (7.6-11.3); Monocytes % 5.6 % (3.3-12.3); Neutrophils % 64.1 % (41.7-73.7); Platelets 248 thou/uL (152-406); RBC Red Blood Cell Count 4.58 M/uL (3.86-4.86); Red Cell Distribution Width 12.6 % (12.1-15.2)
[2024-07-08 17:37] LABS: Specific Gravity 1.023 (1.005-1.030); Sqamous Epithelial <5 /HPF (None Seen); Urine Bacteria <20 /HPF (<20); Urine Bilirubin NEGATIVE (Negative); Urine Blood 3+ (OVER) (Negative); Urine Clarity Extremely Turbid (Clear); Urine Color Light-Yellow (Yellow); Urine Crystals Unidentified Few /HPF (None Seen); Urine Culture Reflex Order REFLEXED; Urine Glucose NEGATIVE (Negative); Urine Ketones NEGATIVE (Negative); Urine Microscopic Reflex YN ORDER UMIC; Urine Mucus Slight /HPF (None Seen); Urine Nitrite 1+ (Negative); Urine Protein 1+ (Negative); Urine RBC >50 /HPF (None Seen); Urine Urobilinogen Normal (Normal); Urine WBC >50 /HPF (<5); Urine WBC Clump Rare /HPF (None Seen); Urine Yeast (Budding) Trace /HPF (None Seen); Urine pH 5.5 (5.0-7.0)
[2024-07-08 17:49] LABS: Albumin 3.9 g/dL (3.4-5.0); Anion Gap 9.5 mEq/L (5.0-15.0); Bilirubin Total 0.9 mg/dL (0.2-1.0); Globulin 3.8 g/dL (2.3-3.5); Potassium 3.5 mEq/L (3.5-5.1); Protein, Total 7.7 g/dL (6.4-8.2)
[2024-07-08] MEDS ORDERED: NA CHLORIDE 0.9% 50 ML ONE (17:58)
[2024-07-08] MEDS ORDERED: CEFTRIAXONE 1000 MG/VIAL ONE (17:58)
[2024-07-08] MEDS ORDERED: ONDANSETRON 4 MG/2 ML VIAL ONE (18:11)
[2024-07-08] MEDS ORDERED: KETOROLAC 30 MG/ML INJ ONE (18:24)
[2024-07-08] MEDS ORDERED: NA CHLORIDE 0.9% 500 ML ONE (18:24)
--- NOTE | 2024-07-08 18:24 | RAD REPORT ---
EXAMINATION: CT ABDOMEN AND PELVIS WITH CONTRAST CLINICAL INDICATION: Abd pain;Flank pain;Hematuria;Kidney stones TECHNIQUE: CT abdomen and pelvis was performed, after the administration of IV contrast, as per [facility] protocol. Axial, sagittal and coronal reconstructions were obtained. One or more of the following dose reduction techniques were used: Automated exposure control, adjustment of the mA and k V according to patient size, and iterative reconstruction. Unless otherwise specified, incidental findings do not require dedicated imaging follow-up. COMPARISON: 12/13/2018 FINDINGS: LOWER CHEST: The visualized lung bases are clear. LIVER: Normal in size and contour. No focal lesion. Cholecystectomy clips. SPLEEN: Normal size. No focal lesion. PANCREAS: No mass, ductal dilation, or coby-pancreatic fluid. ADRENALS: Normal; no mass. KIDNEYS: Normal size and contour. No hydronephrosis. GASTROINTESTINAL TRACT: No evidence of free air, significant intra-abdominal free fluid, bowel obstru ction or abscess. APPENDIX: Appendix surgically absent. LYMPH NODES: No lymphadenopathy. MUSCULOSKELETAL: No acute or suspicious osseous abnormality. ADDITIONAL FINDINGS: Mild inflammation involves the urinary bladder. IMPRESSION: Mild cystitis.
--- NOTE | 2024-07-08 19:01 | EDPHYS ---
Physician Documentation [facility] Name: Zenaida Almazan Age: 63 yrs Sex: Female : 1960 Arrival Date: 07/08/2024 Time: 16:41 Bed 14 Private MD: ED Physician Nirav Castro HPI: 07/08 17:10 This 63 yrs old Female presents to ER via Ambulatory with complaints of sb4 Urinary Problem. 17:10 burning with urination and hematuria that began this morning. denies flank pain or sb4 fever. endorses nausea, but states that is chronic. reports that she had a kidney stone 6 weeks ago- 2 mm left kidney - and believes it passed but is not sure. has not been taking any medications for it anymore- discontinued flomax. Historical: - Allergies: 17:14 Compazine; tm6 17:14 Codeine; tm6 17:14 Percocet; tm6 17:14 Sulfa (Sulfonamide Antibiotics); tm6 - PMHx: 17:14 Kidney stone; sarcoidosis; Rheumatoid arthritis; tm6 - PSHx: 17:14 Total abdominal hysterectomy; Appendectomy; Cholecystectomy; tm6 - Immunization history:: Flu vaccine is not up to date. - Infectious Disease History:: Denies. - Social history:: Smoking status: Patient/guardian denies using. ROS: 17:10 Constitutional: Negative for fever, chills, and weight loss, sb4 17:10 Abdomen/GI: Positive for nausea, 17:10 : Positive for urinary symptoms, pelvic pain, hematuria, burning with urination, 17:12 All other systems are negative, sb4 Exam: 17:12 Constitutional: This is a well developed, well nourished patient who is awake, alert, sb4 and in no acute distress. Head/Face: Normocephalic, atraumatic. Eyes: Extra-ocular motions intact. Periorbital areas with no swelling, redness, or edema. ENT: Mucous membranes moist. Cardiovascular: Regular rate and rhythm with a normal S1 and S2. Respiratory: No increased work of breathing, no retractions or nasal flaring. Abdomen/GI: Soft, non-tender, no distension. Back: No spinal tenderness. No costovertebral tenderness. Full range of motion. Skin: Warm, dry with normal turgor. Normal color with no rashes, no lesions, and no evidence of cellulitis. Vital Signs: 17:13 BP 138 / 81; Pulse 86; Resp 17; Temp 98.8(O); Pulse Ox 98% on R/A; MAP 96 mmHg; Weight tm6 76.2 kg; Height 5 ft. 2 in. ; Pain 3/10; 17:13 Body Mass Index 30.73 (76.20 kg, 157.48 cm) tm6 17:13 Pain Scale: Adult tm6 MDM: 16:58 Medical Screening Exam initiated sb4 17:18 Differential diagnosis: UTI, pyelonephritis, nephrolithiasis, ureterolithiasis. sb4 18:41 Medical Screening Exam initiated [facility] 07/09 08:30 Data reviewed: vital signs, nurses notes, lab test result(s), radiologic studies, and sb4 as a result, I will discharge patient. Counseling: I had a detailed discussion with the patient and/or guardian regarding the historical points, exam findings, and any diagnostic results supporting the discharge/admit diagnosis, lab results, radiology results, the need for outpatient follow up, for definitive care, to return to the emergency department if symptoms worsen or persist or if there are any questions or concerns that arise at home. 07/08 17:09 Order name: CBC with Diff; Complete Time: 17:32 sb4 07/08 17:09 Order name: CMP; Complete Time: 17:52 sb4 07/08 17:09 Order name: Urinalysis w/ reflexes; Complete Time: 17:40 sb4 07/08 17:40 Order name: Urine Culture EDOH 07/08 17:09 Order name: CT Abd/Pelvis - IV Contrast Only; Complete Time: 18:29 sb4 07/08 17:09 Order name: IV Saline Lock; Complete Time: 17:26 sb4 07/08 17:09 Order name: Labs collected and sent; Complete Time: 17:26 sb4 Administered Medications: 07/08 18:20 Drug: Rocephin IV 1 grams IV at calculated rate once; Given slow IV push per pharmacy ap3 instructions Route: IV; Rate: calculated rate; Site: right antecubital; 18:20 Drug: Ondansetron IVP 4 mg IVP once; over 2 minutes Route: IVP; Site: right antecubital;ap3 18:28 Drug: NS 0.9% IV 500 ml 500 ml IV at 1 bolus once; to be given as a bolus over 30 ap3 minutes Volume: 500 ml; Route: IV; Rate: 1 bolus; Site: right antecubital; 18:28 Drug: Ketorolac IVP 15 mg IVP once Route: IVP; Site: right antecubital; ap3 Disposition Summary: 07/08/24 19:00 Discharge Ordered Notes: Location: Home cp Problem: new cp Symptoms: have improved cp Condition: Stable cp Diagnosis - Acute cystitis cp Followup: cp - With: Private Physician - When: 2 - 3 days - Reason: Recheck today's complaints Discharge Instructions: - Discharge Summary Sheet cp - Urinary Tract Infection, Adult cp Forms: - Medication Reconciliation Form cp - Antibiotic Education cp - Prescription Opioid Use cp - Patient Portal Instructions cp - Leadership Thank You Letter cp Prescriptions: - Zofran 4 mg Oral tablet - take 1 tablet ORAL route every 8-12 hours As needed; 10 tablet; Refills: 0, cp Product Selection Permitted - cefpodoxime 200 mg Oral tablet - take 1 tablet ORAL route every 12 hours for 7 days with food; 14 tablet; cp Refills: 0, Product Selection Permitted Addendum: 07/12/2024 12:41 Co-signature as Attending Physician, Nirav Castro MD I agree with the assessment and c grey plan of care. Signatures: Dispatcher [employer] Nirav Tracy MD MD cha Page, Corey, PA PA cp Prokisch, Amanda RN RN [email or web address] Sruthi Cleaning PA-C PAGilmer [email or web address] Negrito Field RN RN tm6
--- NOTE | 2024-07-08 19:01 | ER ---
Nurse's Notes [facility] Name: Zenaida Almazan Age: 63 yrs Sex: Female : 1960 Arrival Date: 07/08/2024 Time: 16:41 Bed 14 Private MD: Diagnosis: Acute cystitis Presentation: 07/08 16:55 Chief complaint: Patient states: about 6 week ago had a bad kidney stone, today started tm6 to have blood in urine, pain with urination, dull ache in suprapubic area, nausea, headache. Coronavirus screen: Client denies travel out of the [place] in the last 14 days. Ebola Screen: Patient negative for fever greater than or equal to 101.5 degrees Fahrenheit, and additional compatible Ebola Virus Disease symptoms Patient denies exposure to infectious person. Patient denies travel to an Ebola-affected area in the 21 days before illness onset. No symptoms or risks identified at this time. Risk Assessment: Do you want to hurt yourself or someone else? Patient reports no desire to harm self or others. Onset of symptoms was July 08, 2024. 16:55 Method Of Arrival: Ambulatory tm6 16:55 Acuity: YADY 3 tm6 17:13 Initial Sepsis Screen: Does the patient meet any 2 criteria? No. Patient's initial tm6 sepsis screen is negative. Does the patient have a suspected source of infection? No. Patient's initial sepsis screen is negative. Triage Assessment: 17:14 General: Appears in no apparent distress. Behavior is calm, cooperative. Pain: tm6 Complains of pain in pelvis Pain currently is 3 out of 10 on a pain scale. at worst was 10 out of 10 on a pain scale. EENT: No signs and/or symptoms were reported regarding the EENT system. Neuro: Level of Consciousness is awake, alert, obeys commands, Oriented to person, place, time, situation. Cardiovascular: Patient's skin is warm and dry. Respiratory: Airway is patent Respiratory effort is even, unlabored, Respiratory pattern is regular, symmetrical. GI: Abdomen is round non-distended, Reports nausea. : Reports burning with urination, pain in suprapubic area blood in urine. Derm: No signs and/or symptoms reported regarding the dermatologic system. Musculoskeletal: Reports pain in pelvis. Historical: - Allergies: 17:14 Compazine; tm6 17:14 Codeine; tm6 17:14 Percocet; tm6 17:14 Sulfa (Sulfonamide Antibiotics); tm6 - PMHx: 17:14 Kidney stone; sarcoidosis; Rheumatoid arthritis; tm6 - PSHx: 17:14 Total abdominal hysterectomy; Appendectomy; Cholecystectomy; tm6 - Immunization history:: Flu vaccine is not up to date. - Infectious Disease History:: Denies. - Social history:: Smoking status: Patient/guardian denies using. Screenin:27 [facility] ED Fall Risk Assessment (Adult) History of falling in the last 3 months, ap3 including since admission No falls in past 3 months (0 pts) Confusion or Disorientation No (0 pts) Intoxicated or Sedated No (0 pts) Impaired Gait No (0 pts) Mobility Assist Device Used No (0 pt) Altered Elimination No (0 pt) Score/Fall Risk Level 0 - 2 = Low Risk Oriented to surroundings, Maintained a safe environment, Educated pt \T\ family on fall prevention, incl call for assistance when getting out of bed, Assessed \T\ reinforced patient's understanding of fall precautions, Hourly rounding (assess needs \T\ fall precautionary measures) done, Used ambulatory aids as needed (educated on \T\ assisted with), Used gait belt as appropriate. Abuse screen: Denies threats or abuse. Nutritional screening: No deficits noted. Tuberculosis screening: No symptoms or risk factors identified. Assessment: 17:26 General: Appears in no apparent distress. Behavior is calm, cooperative, appropriate ap3 for age. Neuro: Level of Consciousness is awake, alert, obeys commands, Oriented to person, place, time, situation, Appropriate for age. Cardiovascular: Patient's skin is warm and dry. Respiratory: Airway is patent Respiratory effort is even, unlabored, Respiratory pattern is regular, symmetrical. : Reports urgency, urinary frequency. Vital Signs: 17:13 BP 138 / 81; Pulse 86; Resp 17; Temp 98.8(O); Pulse Ox 98% on R/A; MAP 96 mmHg; Weight tm6 76.2 kg; Height 5 ft. 2 in. ; Pain 3/10; 17:13 Body Mass Index 30.73 (76.20 kg, 157.48 cm) tm6 17:13 Pain Scale: Adult tm6 ED Course: 16:45 Patient arrived in ED. ra3 16:49 Sruthi Cleaning PA-C is PHCP. sb4 16:49 Nirav Castro MD is Attending Physician. sb4 16:56 Triage completed. tm6 17:13 Ninoska Gomez, RN is Primary Nurse. ap3 17:14 Arm band placed on right wrist. tm6 17:26 Initial lab(s) drawn, by ms, sent to lab. Inserted saline lock: 20 gauge in right ap3 antecubital area, using aseptic technique. Blood collected. Flushed with 10 mL NS. 17:26 CBC with Diff Sent. ap3 17:26 CMP Sent. ap3 17:26 Urinalysis w/ reflexes Sent. ap3 17:27 Patient has correct armband on for positive identification. Placed in gown. Bed in low ap3 position. Call light in reach. Side rails up X 1. Provided Education on: call light education. 17:58 PHCP role handed off by Sruthi Cleaning PA-C cp 17:58 Nirav Bee PA is PHCP. cp 18:06 CT Abd/Pelvis - IV Contrast Only In Process Unspecified. EDMS Administered Medications: 18:20 Drug: Rocephin IV 1 grams IV at calculated rate once; Given slow IV push per pharmacy ap3 instructions Route: IV; Rate: calculated rate; Site: right antecubital; 18:20 Drug: Ondansetron IVP 4 mg IVP once; over 2 minutes Route: IVP; Site: right antecubital;ap3 18:28 Drug: NS 0.9% IV 500 ml 500 ml IV at 1 bolus once; to be given as a bolus over 30 ap3 minutes Volume: 500 ml; Route: IV; Rate: 1 bolus; Site: right antecubital; 18:28 Drug: Ketorolac IVP 15 mg IVP once Route: IVP; Site: right antecubital; ap3 Medication: 17:28 VIS not applicable for this client. ap3 Outcome: 19:00 Discharge ordered by . cp 19:27 Patient left the ED. hb Addendum: 07/12/2024 08:52 Addendum: Culture Results: Positive urine culture. No further action required. Bacteria i w sensitive to prescribed antibiotic. Signatures: Dispatcher [employer] EDMS Ernestine Matson RN RN iw Nirav Bee PA PA cp Baxter, Heather, RN RN Ninoska Gomez RN RN [email or web address] Sruthi Cleaning PAGilmer PAGilmer sb4 Negrito Field RN RN tm6 Rachel Yen ra3 Corrections: (The following items were deleted from the chart) 07/08 17:14 16:55 Chief complaint: Patient states: about 6 week ago had a bad kidney stone, today tm6 started to have blood in urine tm6
[2024-07-08 19:41] VITALS: BP 138/81; TEMP 98.8; O2SAT 98
== END 2024-07-08 19:27 | disposition home or self-care (01) ==
LOC: ER 16:41
DX: N30.01 Acute cystitis with hematuria (principal); Z87.442 Personal history of urinary calculi
CPT/HCPCS: 87088; 85025; 81001; 87086; 36415; 87077; 87186; 80053; 74177; 96375; 96374; 99284; Q9967; J2405; J7040; J0696